=== PATIENT | female | born 1985 | race Native Hawaiian/Other Pacific Islander ===

== ENCOUNTER 2023-01-26 15:17 | Emergency (ER) | payer OTHER ==
[~2023-01-26] VITALS: Ht 175.3 cm; Wt 186.0 kg
[2023-01-26 16:58] LABS: PLATELET COUNT 231 K/uL (152-353)
[2023-01-26 17:05] LABS: POTASSIUM 3.8 mmol/L (3.6-5.2)
== END 2023-01-26 18:30 | disposition home or self-care (01) ==
LOC: ED 15:17
PROVIDERS: Family Medicine
DX: L03.311 Cellulitis of abdominal wall (principal)
CPT/HCPCS: 80053; 81002; 81025; 83605; 85027; 99283